=== PATIENT | male | born 1955 | race Caucasian/White ===

== ENCOUNTER 2019-04-01 14:23 | Inpatient (IN) | payer OTHER ==
[2019-04-01] VITALS (9 sets, daily range): BP systolic 153–200; BP diastolic 90–162
[~2019-04-01] VITALS: Ht 170.2 cm; Wt 80.3 kg
[~2019-04-01 14:23] MED LIST: ALEVE220 MG PO; APRESOLINE25 MG PO; CIPRO750 MG PO; CLONIDINE0.1 MG PO; Cipro Hc 0.2%-110 ML OT; DIOVAN320 MG PO; DUONEB 3ML 3 MG/3 ML INH; HYDRALAZINE HC100 MG PO; K-Dur 20MEQ20 MEQ PO; KEPPRA750 MG PO; LABETALOL200 MG PO; LASIX80 MG PO; LIORESAL10 MG PO; LIORESAL20 MG PO; MIRALAX17 GM/PACK PO; NORVASC10 MG PO; NOVOLIN R100 U/ML SC; PROZAC10 MG PO; PROZAC40 MG PO; Rocaltrol0.25 MCG PO; Senokot1 TAB PO; XANAX0.25 MG PO
[2019-04-01 15:32] LABS: BASO # 0.2 10*3/uL (0.0-0.1); BASO % 0.9 % (0.0-1.0); EOS # 0.4 10*3/uL (0.0-0.4); EOS % 2.1 % (1.0-4.0); HEMATOCRIT 47.5 % (42.0-52.0); HEMOGLOBIN 15.8 g/dl (14.0-18.0); LYMPH # 2.3 10*3/uL (1.3-4.4); LYMPH % 13.2 % (27.0-41.0); MEAN CELL VOLUME 87.3 fl (80.0-94.0); MEAN CORPUSCULAR HGB CONC 33.3 g/dl (33.0-37.0); MONO # 1.4 10*3/uL (0.1-1.0); NEUT # 12.9 10*3/uL (2.3-7.9); NEUT % 75.1 % (47.0-73.0); PLATELET COUNT AUTOMATED 371 10*3/uL (130-400); RED BLOOD COUNT 5.44 10*6/uL (4.50-5.90); RED CELL DISTRI WIDTH 14.6 % (0-14.5); WHITE BLOOD COUNT 17.2 10*3/uL (4.8-10.8)
[2019-04-01 15:42] LABS: ACT PARTIAL THROMBO TIME 28.7 SECONDS (20.0-32.1); INTERNATIONAL NORM RATIO 0.9 (2.0-3.5)
[2019-04-01 15:49] LABS: ALBUMIN 3.2 gm/dl (3.1-4.5); CREATININE 2.23 mg/dL (0.70-1.30); POTASSIUM 3.7 mmol/L (3.5-5.1); TOTAL PROTEIN 8.3 gm/dL (6.4-8.2)
[2019-04-01 15:53] LABS: TROPONIN I 0.709 ng/ml (<0.045)
[2019-04-01 17:07] LABS: CLARITY SL CLOUDY (CLEAR); COLOR YELLOW (YELLOW)
[2019-04-01 17:08] LABS: BILIRUBIN NEGATIVE (NEGATIVE); BLOOD NEGATIVE (NEGATIVE); GLUCOSE NEGATIVE (NEGATIVE); KETONE NEGATIVE (NEGATIVE); LEUKO ESTERASE 1+ (NEGATIVE); NITRITE NEGATIVE (NEGATIVE); SPECIFIC GRAVITY 1.005 (1.005-1.030); UROBILINOGEN 0.2 E.U./dl (0.2-1.0)
[2019-04-01 17:15] LABS: BACTERIA 1+; CALCIUM OXALATE CRYSTALS 1+; MUCOUS TRACE; WBC 21-30 wbc/hpf (0-5)
--- NOTE | 2019-04-01 19:21 | NUR ---
HYDRALAZINE HELP AT THIS TIME D/T BP.
--- NOTE | 2019-04-01 21:30 | NUR ---
A 64, admitted to 4E, under the services of NADINE Nielsen MD with a diagnosis of UTI/MASS OF COLON/SEPSIS. Chief complaint is WEAKNESS. Patient arrived via stretcher from ER. Monitor applied. Initial assessment completed. Vital signs taken and recorded. NADINE NIELSEN MD notified of admission to the unit. Orders received. See assessment for past medical history, medications and allergies. Patient and/or family oriented to unit. visitation policy reviewed. Clothing/patient valuable form completed. MILO ARGUETA
[2019-04-01] MEDS ORDERED: NEURONTIN300 MG PO (22:20)
[2019-04-01] MEDS ORDERED: AMOXICILLIN500 M3 PO (22:22)
--- NOTE | 2019-04-01 22:41 | NUR ---
DR. LEON CONTACTED AT THIS TIME IN REGARDS TO CONSULT. CALL WITH CBC RESULTS IN AM.
[2019-04-02] VITALS: BP 173/95
--- NOTE | 2019-04-02 05:50 | NUR ---
ZANENELLRICKEY Onur [id number] Please refer to the physician's history and physical for past medical history, comorbid conditions, and allergies. Diagnosis: UTI MASS OF COLON SEPSIS Jay Score: 7,VERY HIGH RISK WOUND DESCRIPTIONS: Wound Number: 1 Location of the wound: lower back and entire buttocks Type of wound: deep tissue pressure injury Thickness: Partial Size: 38.0cm x 33.0cm x 0.1cm Tunneling: none Undermining: none Sinus Tract: none Presence of Exudate: none Amount: None Color: dark red, purple Odor: None Periwound Skin Appearance: Normal Wound edges: approximated Pain (associated with wound): none at time of assessment How does patient state this happened? pt unsure how this happened Wound Number: 2 Location of the wound: left great toe Type of wound: deep tissue pressure injury Size: 0.7cm x 0.8cm x <0.1cm Tunneling: none Undermining: none Sinus Tract: none Presence of Exudate: none Amount: None Color: Purple, dark red Odor: None Periwound Skin Appearance: Normal Wound edges: closed Pain (associated with wound): none at time of assessment How does patient state this happened? pt unsure how this happened Wound Number: 3 Location of the wound: left 2nd toe Type of wound: deep tissue pressure injury Size: 0.4cm x 0.5cm x <0.1cm Tunneling: none Undermining: none Sinus Tract: none Presence of Exudate: none Amount: None Color: dark red, purple Odor: None Periwound Skin Appearance: Normal Wound edges: approximated Pain (associated with wound): none at time of assessment How does patient state this happened? pt unsure how this happened Wound Number: 4 Location of the wound: right thumb Thickness: Partial Size: 0.6cm x 0.6cm x <0.1cm Tunneling: none Undermining: none Sinus Tract: none Presence of Exudate: none Amount: None Color: dark red Odor: None Periwound Skin Appearance: Normal Wound edges: intact blood filled blister Pain (associated with wound): none at time of assessment How does patient state this happened? pt stated that he scratched himself Surface the patient is resting on: Isoflex SKIN PREVENTION RECOMMENDATION: 1. Pressure redistribution support surface as appropriate 2. Elevate heels 3. Remove boots/TEDS every shift and reapply 4. Head of bed 30 degrees as tolerated 5. Assess nutrition and hydration 6. Manage moisture 7. Avoid the use of containment devices while in bed 8. Use absorptive products on surfaces limit layers of linens on bed 9. Turn and reposition every 1-2 hours in bed and every 1 hour in chair as tolerated 10. Weight shifts every 15 minutes while up in chair 11. Offloading with pillows or device to keep heels elevated off bed 12. Monitor skin at least every shift 13. Inspect under medical devices twice a day WOUND TREATMENT RECOMMENDATIONS: Partial thickness guidelines: Cleanse right thumb with nss and apply sureprep and cover with bandaid daily and prn for soiling. DTI guidelines: Apply sureprep to left great toe and left 2nd toe then cover with bandaid daily and prn for soiling. Consult podiatry for toenail care. Cleanse bilateral lower extremities with soap and water and apply lac hydrin bid. Cleanse entire back and buttocks with soap and water and apply calazime every shift and prn for soiling. Wheelchair cushion when oob. Heel raiser pro boots to bilateral feet while in bed.
[2019-04-02 06:46] LABS: BASO # 0.1 10*3/uL (0.0-0.1); BASO % 0.9 % (0.0-1.0); EOS # 0.4 10*3/uL (0.0-0.4); EOS % 2.3 % (1.0-4.0); HEMATOCRIT 44.7 % (42.0-52.0); HEMOGLOBIN 15.1 g/dl (14.0-18.0); LYMPH # 2.3 10*3/uL (1.3-4.4); LYMPH % 14.3 % (27.0-41.0); MEAN CELL VOLUME 85.5 fl (80.0-94.0); MEAN CORPUSCULAR HGB 28.9 pg (27.0-31.0); MEAN CORPUSCULAR HGB CONC 33.8 g/dl (33.0-37.0); MEAN PLATELET VOLUME 9.6 fl (9.6-12.3); MONO # 1.2 10*3/uL (0.1-1.0); MONO % 7.6 % (3.0-9.0); NEUT # 12.1 10*3/uL (2.3-7.9); NEUT % 74.3 % (47.0-73.0); PLATELET COUNT AUTOMATED 363 10*3/uL (130-400); RED BLOOD COUNT 5.23 10*6/uL (4.50-5.90); RED CELL DISTRI WIDTH 14.3 % (0-14.5); WHITE BLOOD COUNT 16.2 10*3/uL (4.8-10.8)
--- NOTE | 2019-04-02 06:55 | NUR ---
PODIATRY CONSULT COMPLETE WITH DR. HAWKINS.
[2019-04-02 08:00] VITALS: BP 168/92
--- NOTE | 2019-04-02 08:53 | NUR ---
DR LEON IN TO SEE PT, ORDERS FOR EGD AND COLONOSCOPY. PT THEN REFUSES, RATIONALE EXPLIANED TO PT BY THIS RN FOR EGD AND COLO. PT CONTINUES TO REFUSE. DR LEON AND DR VERAS MADE AWARE.
--- NOTE | 2019-04-02 09:22 | NUR ---
PHYSICAL THERAPY Screen received pt from home w hx of CVA admitted with weakens pt could benefit from PT eval if he has had decline in functional status. Pascale Mc PT
--- NOTE | 2019-04-02 09:25 | NUR ---
Nursing screen received and chart reviewed. Patient has a history of CVA with left sided weakness. If patient has a decline in ADLs, functional transfers, and mobility, please send OT orders. Thank you. Pippa dawn, OTR/L
--- NOTE | 2019-04-02 10:27 | NUR ---
SPEECH PATHOLOGY Nursing screen completed. Patient has a history of CVA but does not appear to present with acute communication or swallowing difficulties at this time. Speech services are not indicated however this dept. will remain available should future needs arise. SHARON MCNEILL MSCCC-WATERWORKS CHIEF ENGINEER
[2019-04-02 12:00] VITALS: BP 145/96
--- NOTE | 2019-04-02 13:38 | NUR ---
Roustabout Pusher in to talk to patient. Patient states lives at home with . There are no steps in the home. Physician: frida hua Pharmacy: [facility] [place] health services: none Patient's level of ADLs: MAX ASSIST Patient has working utilities: all working DME: wheelchair Follow-up physician's appointment after d/c: family prefers to make patient's appointment when discharge Does patient want to access PORTAL?: no Discharge plan discussed with patient's daughter, she states patient has had a stroke and her mom and family take care of him at home, discussed if they would need VNA and educated on the services they provide, the daughter declined any services at this time, she stated if there was anything they needed at home her mom would contact case management. BRITTON BAIN
[2019-04-02 14:00] VITALS: BP 145/96
--- NOTE | 2019-04-02 14:30 | NUR ---
NOTIFIED DR LEON RE: PT AGREES TO HAVE EGD/COLO. HE STATES HE WILL SEE THE PT LATER TODAY AGAIN.
[2019-04-02 16:00] VITALS: BP 142/92
--- NOTE | 2019-04-02 18:00 | NUR ---
IN AND UPDATED THAT PT WILL HAVE EGD/COLO ON SUNDAY. SHE STATES UNDERSTANDING.
[2019-04-02 20:00] VITALS: BP 144/97
--- NOTE | 2019-04-02 21:23 | NUR ---
NOTIFIED DR. MACDONALD PATIENT IS HAVING MULTIPLE PVCS, IN AND OUT OF TRIGEMINY. TOLD TO CONSULT [facility]
--- NOTE | 2019-04-02 21:55 | NUR ---
NOTIFIFED ANSWERING SERVICE OF NEW CONSULT. WAITING ON A CALL BACK.
--- NOTE | 2019-04-02 22:04 | NUR ---
DR. MONZON CALLED BACK. NO NEW ORDERS RECEIVED STATED HE WOULD SEE PATIENT IN THE MORNING. WILL CONTINUE TO MONITOR.
[2019-04-03] VITALS: BP 135/96
--- NOTE | 2019-04-03 04:18 | NUR ---
Recommend follow up for wound care in outpatient setting patient refused at this time.
[2019-04-03 08:00] VITALS: BP 150/100
--- NOTE | 2019-04-03 08:30 | NUR ---
Dr. Mesa notified of elevated bp of 150/100.
--- NOTE | 2019-04-03 09:00 | NUR ---
Fitter Mechanic in to see patient. No new needs or request at this time. No family at bedside. He is scheduled for an EGD/colo tomorrow.
[2019-04-03 12:00] VITALS: BP 114/83
--- NOTE | 2019-04-03 12:42 | NUR ---
Report called to [facility] spoke with Cesar.
--- NOTE | 2019-04-03 14:00 | NUR ---
Encouraged pt to drink prep for colonoscopy.
[2019-04-03 16:00] VITALS: BP 116/88
[2019-04-03 20:00] VITALS: BP 147/84
[2019-04-04] VITALS (8 sets, daily range): BP systolic 110–183; BP diastolic 70–102
--- NOTE | 2019-04-04 04:00 | NUR ---
PATIENT ASLEEP, NO SIGNS OF DISTRESS. RESPIRATIONS EASY, NON LABORED. PATIENT HAS BEEN INCONTIENT MULTIPLE TIMES FOR LOOSE STOOLS. BRIEF ON. FLUIDS RUNNING AT 60ML/HR. BED IN LOWEST POSITION,CALL LIGHT WITHIN REACH. BED ALARM ON. WILL CONTINUE TO MONITOR.
--- NOTE | 2019-04-04 06:49 | NUR ---
PATIENT GIVEN FLEETS ENEMA. LIQUID YELLOW STOOL PRODUCED. PATIENT TOLERATED WELL.
--- NOTE | 2019-04-04 08:28 | NUR ---
Received call from asking if patient could have a hospital bed at home. Notified Dr. Mesa.
[2019-04-04 09:02] LABS: HEMATOCRIT 42.8 % (42.0-52.0); HEMOGLOBIN 13.9 g/dl (14.0-18.0); MEAN CELL VOLUME 87.3 fl (80.0-94.0); MEAN CORPUSCULAR HGB 28.4 pg (27.0-31.0); MEAN CORPUSCULAR HGB CONC 32.5 g/dl (33.0-37.0); MEAN PLATELET VOLUME 9.5 fl (9.6-12.3); RED CELL DISTRI WIDTH 14.6 % (0-14.5); WHITE BLOOD COUNT 9.6 10*3/uL (4.8-10.8)
[2019-04-04 09:07] LABS: PLATELET COUNT AUTOMATED 242 10*3/uL (130-400)
[2019-04-04 09:19] LABS: CREATININE 1.93 mg/dL (0.70-1.30)
[2019-04-04 09:21] LABS: POTASSIUM 3.1 mmol/L (3.5-5.1)
[2019-04-04 10:03] LABS: ATYPICAL LYMPHS 2 % (0-0); PLATELET SUFFICIENCY NORMAL (NORMAL); TOTAL CELLS COUNTED 100 #CELLS
[2019-04-04 10:04] LABS: TOXIC GRANULATION SLIGHT; VACUOLATION OF NEUTROPHILS SLIGHT
--- NOTE | 2019-04-04 10:20 | NUR ---
Nutritional Support Services Note: Recommend pt to receive Ensure po TID with meals. Regular diet as ordered. Ht.5'7 Wt.177#. Dx of UTI, mass of colon and sepsis. Hx of CVA. Pt has been NPO prepping for colonoscopy today. Unable to evalute po intake. Ensure will also be appropriate at home. Pt has wounds noted. Will follow as needed. Jerri Feng Rdn Ld
--- NOTE | 2019-04-04 11:45 | NUR ---
Received prescription for hospital bed at home from Dr. Mesa. Awaiting clinical documentation to fax to [facility].
--- NOTE | 2019-04-04 12:00 | NUR ---
patient bp is elevated at this time. spoke with dr. woods from surgery. patient will receive hydralazine at this time. bp will be rechecked in 1 hour.
[2019-04-04 13:35] LABS: CHOLESTEROL 177 mg/dL (<200); HDL CHOLESTEROL 31 mg/dl (40-60); LDL CHOLESTEROL 108 mg/dL (9-159); TRIGLYCERIDES 188 mg/dl (<150); VLDL CHOLESTEROL 38 mg/dL (6-40)
--- NOTE | 2019-04-04 13:40 | NUR ---
PATIENT TAKEN DOWN FOR STRESS TEST VIA CART. PATIENT WILL BE TAKEN TO OR FOR EGD/COLO AFTER STRESS TEST IS COMPLETED.
--- NOTE | 2019-04-04 14:18 | NUR ---
INFORMED SIGNED CONSENT OBTAINED FOR LEXISCAN STRESS TEST WITH DR ESPINOSA. RESTING EKG NSR WITH A FIRST DEGREE BLOCK HR 99 BP 154/100. RHONCHI AND POX 97% PT COMPLETED ONE MINUTE OF LEXISCAN PROTOCOL WITH PT RECEIVING LEXISCAN 0.4MG IV OVER 10 SECONDS. PVC'S NOTED, NON DIAGNOSTIC ST CHANGES SEEN. PT C/O A HEADACHE WITH INJECTION. LAST RECOVERY HR OF 114 BP 150/84. PT IN STABLE CONDITION, AWAITING NUCLEAR IMAGES.
--- NOTE | 2019-04-04 17:33 | NUR ---
SPOKE WITH DR. ESPINOSA REGARDING TRESS TEST. RESULTS WERE ABNORMAL. PATIENT DOES HAVE SOME ISCHEMIA OBSERVED. PATIENT MAY NEED A HEART CATH DEPENDING ON OUTCOME OF GI FINDINGS FROM EGD/COLO. NO FURTHER ORDERS GIVEN AT THIS TIME.
--- NOTE | 2019-04-04 17:56 | NUR ---
REPORT RECEIVED FROM [facility] REGARDING EGD/COLO RESULTS. DR. LEON ORDERS RECEIVED. PATIENT WILL RECEIVE TWO DOSES OF DIFLUCAN THIS EVENING AND THEN CONTINUE ONE DOSE DAILY. CARAFATE SUSPENSION 2G WILL BE STARTED QID.
[2019-04-05] VITALS: BP 161/92
[2019-04-05 07:30] LABS: CREATININE 1.89 mg/dL (0.70-1.30)
[2019-04-05 07:34] LABS: BASO # 0.1 10*3/uL (0.0-0.1); BASO % 0.8 % (0.0-1.0); EOS # 0.2 10*3/uL (0.0-0.4); EOS % 1.6 % (1.0-4.0); HEMATOCRIT 39.4 % (42.0-52.0); HEMOGLOBIN 12.9 g/dl (14.0-18.0); LYMPH # 1.6 10*3/uL (1.3-4.4); LYMPH % 13.3 % (27.0-41.0); MEAN CELL VOLUME 87.9 fl (80.0-94.0); MEAN CORPUSCULAR HGB 28.8 pg (27.0-31.0); MEAN CORPUSCULAR HGB CONC 32.7 g/dl (33.0-37.0); MEAN PLATELET VOLUME 9.2 fl (9.6-12.3); MONO # 0.7 10*3/uL (0.1-1.0); MONO % 5.7 % (3.0-9.0); NEUT # 9.1 10*3/uL (2.3-7.9); NEUT % 78.1 % (47.0-73.0); RED BLOOD COUNT 4.48 10*6/uL (4.50-5.90); RED CELL DISTRI WIDTH 14.6 % (0-14.5); WHITE BLOOD COUNT 11.6 10*3/uL (4.8-10.8)
[2019-04-05 07:50] LABS: PLATELET COUNT AUTOMATED 344 10*3/uL (130-400)
[2019-04-05 08:00] VITALS: BP 158/84
[2019-04-05 12:00] VITALS: BP 163/98
[2019-04-05 16:00] VITALS: BP 134/85
--- NOTE | 2019-04-05 16:01 | NUR ---
DR. TRAORE AWARE OF CONSULT.
[2019-04-05 20:00] VITALS: BP 137/81
--- NOTE | 2019-04-05 22:01 | NUR ---
PM MEDS TAKEN WITH EASE, PRN TYLENOL GIVEN PER PT REQUEST. CALL LIGHT IN REACH.
[2019-04-06] VITALS: BP 143/90
[2019-04-06 08:00] VITALS: BP 140/85
[2019-04-06 12:00] VITALS: BP 143/88
[2019-04-06 16:00] VITALS: BP 120/69
[2019-04-06 20:00] VITALS: BP 136/82
[2019-04-07] VITALS: BP 130/77
--- NOTE | 2019-04-07 06:33 | NUR ---
DR TRAORE WOULD LIKE DR VERAS TO CALL HIM WHEN SHE ARRIVES; PER PT'S FAMILY REQUEST.
--- NOTE | 2019-04-07 07:00 | NUR ---
REPORT RECEIVED. IV FLUIDS INFUSING WITHOUT DIFFICULTY. PT SLEEPING. NO DISTRESS NOTED. CALL LIGHT IN REACH.
[2019-04-07 08:00] VITALS: BP 137/74
--- NOTE | 2019-04-07 08:00 | NUR ---
Discussed discharge planning with Dr. Mesa. She states Dr. Frazier is working on getting the patient transferred. She thinks possibly [facility].
[2019-04-07 08:01] LABS: CREATININE 1.7 mg/dL (0.70-1.30); POTASSIUM 2.9 mmol/L (3.5-5.1)
[2019-04-07] MEDS ORDERED: FLUCONAZOLE100 MG PO (08:17)
[2019-04-07] MEDS ORDERED: METOPROLOL SUCC25 M2 PO (08:17)
[2019-04-07] MEDS ORDERED: ISORDIL10 M1 PO (08:17)
[2019-04-07] MEDS ORDERED: Ipratropium Brom3 ML NEB (08:17)
--- NOTE | 2019-04-07 08:23 | NUR ---
DR. VERAS NOTIFIED OF 50'S 60'S HR. ORDERED TO D/C COREG AND GIVE TOPROL. ALSO ORDERED KRUN AND KDUR. NO OTHER ORDERS AT THIS TIME.
--- NOTE | 2019-04-07 08:30 | NUR ---
DR. VERAS IN TO SEE PT
--- NOTE | 2019-04-07 10:00 | NUR ---
NO COMPLAINTS. PT LYING IN BED, CALL LIGHT IN REACH
[2019-04-07 12:00] VITALS: BP 135/78
--- NOTE | 2019-04-07 12:00 | NUR ---
DAUGHTER AT BEDSIDE
--- NOTE | 2019-04-07 13:37 | NUR ---
CALLED [facility] AND SPOKE WITH JOSE Zhang AUTH NUMBER FOR TRANSFER IS [id number]. NUMBER TO SEND CLINICALS TO IS [phone]. CALLED [facility] FOR [facility] AND PROVIDED THEM WITH AUTH NUMBER AND NUMBER TO FAX CLINICALS TO.
[2019-04-07 16:00] VITALS: BP 144/83
[2019-04-07 20:00] VITALS: BP 133/83
[2019-04-08] VITALS: BP 154/84
--- NOTE | 2019-04-08 | NUR ---
PT RESTING IN BED WITH EYES CLOSED, AWAKENS WITH EASE. RESP NONLABORED. NO ACUTE DISTRESS NOTED. NO COMPLAINTS VOICED. IV PATENT AND IVF'S INFUSING ORDERED WITHOUT DIFFICULTY. NO S/S OF HYPO/HYPERGLYCEMIA NOTED.
[2019-04-08 08:00] VITALS: BP 142/70
[2019-04-08 08:25] LABS: CREATININE 1.63 mg/dL (0.70-1.30); POTASSIUM 3.3 mmol/L (3.5-5.1)
--- NOTE | 2019-04-08 09:00 | NUR ---
Awaiting on [facility] bed for transfer.
[2019-04-08 12:00] VITALS: BP 148/82
--- NOTE | 2019-04-08 14:42 | NUR ---
Spoke to Michael at [facility], patient is still waiting on a bed.
[2019-04-08 16:00] VITALS: BP 124/79
[2019-04-08 20:00] VITALS: BP 120/79
--- NOTE | 2019-04-08 23:30 | NUR ---
MEDICATED WITH HYCODAN PER PRN ORDER FOR C/O COUGH.
[2019-04-09] VITALS: BP 126/73
--- NOTE | 2019-04-09 03:59 | NUR ---
Upon discharge recommend patient to follow up for wound care in outpatient setting continue current wound care orders at discharging facility.
[2019-04-09 06:01] LABS: CREATININE 1.93 mg/dL (0.70-1.30); POTASSIUM 3.5 mmol/L (3.5-5.1)
--- NOTE | 2019-04-09 06:16 | NUR ---
RICKEY KENNEDY [id number] Please refer to the physician's history and physical for past medical history, comorbid conditions, and allergies. Diagnosis: UTI MASS OF COLON SEPSIS Jay Score: 14,MODERATE RISK WOUND DESCRIPTIONS: Wound Number: 1 Location of the wound: lower back and entire buttocks red and blanchable at time of assessment. No open areas noted at time of assessment. Wound Number: 2 Location of the wound: left great toe Type of wound: deep tissue pressure injury Size: 0.7cm x 0.8cm x <0.1cm Tunneling: none Undermining: none Sinus Tract: none Presence of Exudate: none Amount: None Color: Purple, dark red Odor: None Periwound Skin Appearance: Normal Wound edges: closed Pain (associated with wound): none at time of assessment How does patient state this happened? pt unsure how this happened Wound Number: 3 Location of the wound: left 2nd toe Type of wound: deep tissue pressure injury Size: 0.2cm x 0.4cm x <0.1cm Tunneling: none Undermining: none Sinus Tract: none Presence of Exudate: none Amount: None Color: Red Odor: None Periwound Skin Appearance: Normal Wound edges: approximated Pain (associated with wound): none at time of assessment How does patient state this happened? pt unsure how this happened Wound Number: 4 Location of the wound: right thumb Thickness: Partial Size: 0.5cm x 0.5cm x <0.1cm Tunneling: none Undermining: none Sinus Tract: none Presence of Exudate: none Amount: None Color: dark red Odor: None Periwound Skin Appearance: Normal Wound edges: intact blood filled blister Pain (associated with wound): none at time of assessment How does patient state this happened? pt stated that he scratched himself Surface the patient is resting on: Isoflex SKIN PREVENTION RECOMMENDATION: 1. Pressure redistribution support surface as appropriate 2. Elevate heels 3. Remove boots/TEDS every shift and reapply 4. Head of bed 30 degrees as tolerated 5. Assess nutrition and hydration 6. Manage moisture 7. Avoid the use of containment devices while in bed 8. Use absorptive products on surfaces limit layers of linens on bed 9. Turn and reposition every 1-2 hours in bed and every 1 hour in chair as tolerated 10. Weight shifts every 15 minutes while up in chair 11. Offloading with pillows or device to keep heels elevated off bed 12. Monitor skin at least every shift 13. Inspect under medical devices twice a day WOUND TREATMENT RECOMMENDATIONS: Continue Partial thickness guidelines: Cleanse right thumb with nss and apply sureprep and cover with bandaid daily and prn for soiling. Continue DTI guidelines: Apply sureprep to left great toe and left 2nd toe then cover with bandaid daily and prn for soiling. Podiatry is already on consult. Continue Cleanse bilateral lower extremities with soap and water and apply lac hydrin bid. Continue Cleanse entire back and buttocks with soap and water and apply calazime every shift and prn for soiling. Continue Wheelchair cushion when oob. Continue Heel raiser pro boots to bilateral feet while in bed.
[2019-04-09 08:00] VITALS: BP 128/68
--- NOTE | 2019-04-09 08:15 | NUR ---
PATIENT RESTING IN BED WATCHING TV. PLEASANT AND NO COMPLAINTS AT THIS TIME. LUIZ WU SPCC
--- NOTE | 2019-04-09 10:35 | NUR ---
PATIENT RESTING COMFORTABLY. NO COMPLAINTS AT THIS TIME. WILL CONTINUE TO MONITOR. LUIZ WADE
[2019-04-09 12:00] VITALS: BP 134/69
--- NOTE | 2019-04-09 12:48 | NUR ---
PATIENT IS RESTING COMFORTABLY WITH DAUGHTER AT BEDSIDE. NO COMPLAINTS AT THIS TIME. LUIZ WU BETITO
--- NOTE | 2019-04-09 13:36 | NUR ---
PATIENT IS RESTING IN BED COMFORTABLY. VERY PLEASANT. NO COMPLAINTS AT THIS TIME. LUIZ WU [facility]
--- NOTE | 2019-04-09 13:44 | NUR ---
NURSE TO NURSE CALLED TO JESSICA
--- NOTE | 2019-04-09 14:05 | NUR ---
PT RESUFED WOUND CARE PICTURES AT THIS TIME, PER PT THEY WERE ALREADY LOOKED AT TODAY
--- NOTE | 2019-04-09 14:50 | NUR ---
Discharge instructions reviewed with patient/family. Patient receptive and verbalizes understanding. Follow-up care arranged. Written instructions given to patient/family. BLAINE HILL
== END 2019-04-09 14:50 | disposition short-term general hospital (02) | DRG 374 ==
LOC: ED 14:23 → 4E 19:48 → EDHOLD 19:48 → 4E 20:42
PROVIDERS: Internal Medicine; Internal Medicine Cardiovascular Disease; Nurse Practitioner Family; ADMIT Internal Medicine
PROC: 0HBRXZZ Excision of Toe Nail, External Approach (ICD-10-PCS; principal; 2019-04-02)
PROC: 4A02XM4 Measurement of Cardiac Total Activity, External Approach (ICD-10-PCS; 2019-04-04)
PROC: 0DB78ZX Excision of Stomach, Pylorus, Via Natural or Artificial Opening Endoscopic, Diagnostic (ICD-10-PCS; 2019-04-04)
PROC: 3E073KZ Introduction of Other Diagnostic Substance into Coronary Artery, Percutaneous Approach (ICD-10-PCS; 2019-04-04)
PROC: 0DD58ZX Extraction of Esophagus, Via Natural or Artificial Opening Endoscopic, Diagnostic (ICD-10-PCS; 2019-04-04)
PROC: 0DBN8ZX Excision of Sigmoid Colon, Via Natural or Artificial Opening Endoscopic, Diagnostic (ICD-10-PCS; 2019-04-04)
DX: C18.9 Malignant neoplasm of colon, unspecified (principal); N17.0 Acute kidney failure with tubular necrosis; E87.2 Acidosis; N18.4 Chronic kidney disease, stage 4 (severe); I16.9 Hypertensive crisis, unspecified; I69.354 Hemiplegia and hemiparesis following cerebral infarction affecting left non-dominant side; I13.0 Hypertensive heart and chronic kidney disease with heart failure and stage 1 through stage 4 chronic kidney disease, or unspecified chronic kidney disease; N13.6 Pyonephrosis; B37.81 Candidal esophagitis; K59.00 Constipation, unspecified; E87.6 Hypokalemia; K29.70 Gastritis, unspecified, without bleeding; K29.80 Duodenitis without bleeding; K80.80 Other cholelithiasis without obstruction; K25.9 Gastric ulcer, unspecified as acute or chronic, without hemorrhage or perforation; R59.0 Localized enlarged lymph nodes; K26.9 Duodenal ulcer, unspecified as acute or chronic, without hemorrhage or perforation; D64.9 Anemia, unspecified; R62.7 Adult failure to thrive; I50.9 Heart failure, unspecified; M24.575 Contracture, left foot; M24.572 Contracture, left ankle; K44.9 Diaphragmatic hernia without obstruction or gangrene; K22.8 Other specified diseases of esophagus; F41.9 Anxiety disorder, unspecified; B35.1 Tinea unguium; I49.3 Ventricular premature depolarization; S90.812A Abrasion, left foot, initial encounter; X58.XXXA Exposure to other specified factors, initial encounter; Y93.89 Activity, other specified; Y92.89 Other specified places as the place of occurrence of the external cause; Y99.8 Other external cause status; Z82.49 Family history of ischemic heart disease and other diseases of the circulatory system; Z99.3 Dependence on wheelchair; Z82.3 Family history of stroke; Z79.899 Other long term (current) drug therapy; Z68.27 Body mass index [BMI] 27.0-27.9, adult

== ENCOUNTER 2019-05-26 12:41 | Inpatient (IN) | payer OTHER ==
[~2019-05-26] VITALS: Ht 172.7 cm; Wt 82.0 kg
[~2019-05-26 12:41] MED LIST changes: +AMOXICILLIN500 M3 PO; +FLUCONAZOLE100 MG PO; +ISORDIL10 M1 PO; +Ipratropium Brom3 ML NEB; +METOPROLOL SUCC25 M2 PO; +NEURONTIN300 MG PO
[2019-05-26 12:42] VITALS: BP 119/70
[2019-05-26 13:35] LABS: BASO # 0.1 10*3/uL (0.0-0.1); BASO % 0.9 % (0.0-1.0); EOS # 1.2 10*3/uL (0.0-0.4); HEMATOCRIT 32.8 % (42.0-52.0); HEMOGLOBIN 9.8 g/dl (14.0-18.0); LYMPH # 1.7 10*3/uL (1.3-4.4); LYMPH % 11.4 % (27.0-41.0); MEAN CELL VOLUME 86.5 fl (80.0-94.0); MEAN CORPUSCULAR HGB 25.9 pg (27.0-31.0); MEAN CORPUSCULAR HGB CONC 29.9 g/dl (33.0-37.0); MEAN PLATELET VOLUME 9.2 fl (9.6-12.3); MONO # 0.6 10*3/uL (0.1-1.0); MONO % 3.8 % (3.0-9.0); NEUT % 75.2 % (47.0-73.0); PLATELET COUNT AUTOMATED 348 10*3/uL (130-400); RED BLOOD COUNT 3.79 10*6/uL (4.50-5.90); WHITE BLOOD COUNT 14.6 10*3/uL (4.8-10.8)
[2019-05-26 13:45] LABS: ACT PARTIAL THROMBO TIME 28.2 SECONDS (20.0-32.1)
[2019-05-26 14:03] LABS: ALBUMIN 2.6 gm/dl (3.1-4.5); CREATININE 1.75 mg/dL (0.70-1.30); POTASSIUM 3.4 mmol/L (3.5-5.1); TOTAL PROTEIN 6.9 gm/dL (6.4-8.2)
[2019-05-26 14:04] LABS: TROPONIN I 0.033 ng/ml (<0.045)
[2019-05-26 15:03] LABS: BILIRUBIN NEGATIVE (NEGATIVE); BLOOD 1+ (NEGATIVE); CLARITY SL CLOUDY (CLEAR); COLOR YELLOW (YELLOW); GLUCOSE NEGATIVE (NEGATIVE); KETONE NEGATIVE (NEGATIVE); LEUKO ESTERASE 1+ (NEGATIVE); NITRITE NEGATIVE (NEGATIVE); SPECIFIC GRAVITY 1.005 (1.005-1.030); UROBILINOGEN 0.2 E.U./dl (0.2-1.0)
[2019-05-26 15:14] LABS: BACTERIA 2+; URIC ACID CRYSTALS 1+
[2019-05-26 18:15] VITALS: BP 144/81
--- NOTE | 2019-05-26 18:15 | NUR ---
A 64, admitted to , under the services of Dr. TORRES CASTRO,LESLEY Mariee with a diagnosis of UTI, METABOLIC ENCEPHALOPATHY. Chief complaint is CHANGE IN MENTAL STATUS. Patient arrived via ambulance from ER. Monitor applied. Initial assessment completed. Vital signs taken and recorded. DR. TORRES CASTRO,LESLEY Mariee notified of admission to the unit. Orders received. See assessment for past medical history, medications and allergies. Patient and/or family oriented to unit. [facility] visitation policy reviewed. Clothing/patient valuable form completed. OPAL LYNN
--- NOTE | 2019-05-26 18:24 | NUR ---
DR. BAJWA'S ANSWERING SERVICE NOTIFIED OF CONSULT.
--- NOTE | 2019-05-26 19:25 | NUR ---
MADE AWARE OF WOUNDS. SEE ORDERS.
[2019-05-26 20:00] VITALS: BP 126/74
--- NOTE | 2019-05-26 20:00 | NUR ---
ASSUMED CARE FOR THIS PT AT THIS TIME. PT AWAKE IN BED. DINNER TRAY SITTING ON BEDSIDE TABLE. ASKED PT IF HE WAS HUNGRY, PT STATES "YES". DINNER FED TO PT. PT ATE 80%. RHONCHI/WHEEZING NOTED T/O W/MOIST ERP IMPLEMENTATION CONSULTANT COUGH. LOVE NOTED. WILL MONITOR. BLE ELEVATED. BED IN LOW POSITION W/WHEELS LOCKED AND ALARM ON. CALL LIGHT IN REACH.
--- NOTE | 2019-05-26 21:21 | NUR ---
PT ANXIOUS, PUTTING IRRIGATION SUPERVISOR LIGHT FREQUENTLY AND CALLING OUT FOR FOOD. HS SNACK GIVEN. PT REPOSITIONED. HS MEDS GIVEN. MEDICATED W/XANAX AT THIS TIME. CALL LIGHT IN REACH.
--- NOTE | 2019-05-26 22:35 | NUR ---
24 HR chart check completed.
[2019-05-27] VITALS: BP 110/57
--- NOTE | 2019-05-27 04:47 | NUR ---
RICKEY KENNEDY [id number] Please refer to the physician's history and physical for past medical history, comorbid conditions, and allergies. Diagnosis: UTI METABOLIC ENCEPHALOPATHY SEPSIS PNEUMONIT Jay Score: 11,HIGH RISK WOUND DESCRIPTIONS: Wound Number: 1 Patient's coccyx scar tissue noted at time of assessment. No open areas noted at time of assessment. No drainage noted at time of assessment. Wound Number: 2 Location of the wound: midline abdominal incision Type of wound: surgical Thickness: Full Size: 8.7cm x 0.6cm x 0.1cm Tunneling: none Undermining: none Sinus Tract: none Presence of Exudate: none Amount: None Color: Red, yellow Odor: None Periwound Skin Appearance: Normal Wound edges: approximated Pain (associated with wound): none at time of assessment How does patient state this happened? pt stated he had surgery but is unsure of when nurse caring for patient stated it was back in march Bilateral heels tender to touch at time of assessment. No open areas noted at time of assessment. Bilateral heels are red and blanchable at this time. Surface the patient is resting on: Position Pro SKIN PREVENTION RECOMMENDATION: 1. Pressure redistribution support surface as appropriate 2. Elevate heels 3. Remove boots/TEDS every shift and reapply 4. Head of bed 30 degrees as tolerated 5. Assess nutrition and hydration 6. Manage moisture 7. Avoid the use of containment devices while in bed 8. Use absorptive products on surfaces limit layers of linens on bed 9. Turn and reposition every 1-2 hours in bed and every 1 hour in chair as tolerated 10. Weight shifts every 15 minutes while up in chair 11. Offloading with pillows or device to keep heels elevated off bed 12. Monitor skin at least every shift 13. Inspect under medical devices twice a day WOUND TREATMENT RECOMMENDATIONS: Wheelchair cushion when oob Heel raiser pro boots to bilateral feet Cleanse coccyx with soap and water and apply hydraguard every shift and prn for soiling Cleanse abdominal incision with nss and apply sureprep around the wouund hydrogel to wound bed and cover with optifoam gentle daily and prn for soiling. D/C stage 1 guidelines and dressing change orders
[2019-05-27 06:16] LABS: BASO # 0.1 10*3/uL (0.0-0.1); BASO % 0.6 % (0.0-1.0); EOS # 1.1 10*3/uL (0.0-0.4); EOS % 9.3 % (1.0-4.0); HEMATOCRIT 29.7 % (42.0-52.0); LYMPH # 2.2 10*3/uL (1.3-4.4); LYMPH % 19.2 % (27.0-41.0); MEAN CELL VOLUME 86.3 fl (80.0-94.0); MEAN CORPUSCULAR HGB 26.2 pg (27.0-31.0); MEAN CORPUSCULAR HGB CONC 30.3 g/dl (33.0-37.0); MEAN PLATELET VOLUME 9.4 fl (9.6-12.3); MONO # 0.8 10*3/uL (0.1-1.0); MONO % 6.8 % (3.0-9.0); NEUT # 7.2 10*3/uL (2.3-7.9); NEUT % 63.7 % (47.0-73.0); PLATELET COUNT AUTOMATED 280 10*3/uL (130-400); RED BLOOD COUNT 3.44 10*6/uL (4.50-5.90); RED CELL DISTRI WIDTH 15.4 % (0-14.5); WHITE BLOOD COUNT 11.3 10*3/uL (4.8-10.8)
[2019-05-27 06:19] LABS: CREATININE 1.81 mg/dL (0.70-1.30)
--- NOTE | 2019-05-27 06:40 | NUR ---
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 HIS POTASSIUM ALSO DROPPED FROM 3.4 YESTERDAY TO 3.0 TODAY.
[2019-05-27 08:00] VITALS: BP 118/66
--- NOTE | 2019-05-27 09:04 | NUR ---
Cigarette Making Machine Catcher in to talk to patient. Patient states lives at home with his . There are no steps in the home. Physician: Dr. Kiana Mesa Pharmacy: [facility] Home health services: none Patient's level of ADLs: MAX ASSIST Patient has working utilities: yes DME: wheelchair, hospital bed Follow-up physician's appointment after d/c: he prefers to make his own follow up appointment after discharge Does patient want to access PORTAL?: no Discharge plan discussed with patient. He lives at home with his . He needs max assistance with his ADLs and gets around in a wheelchair. Family takes care of patient at home. Discussed home health care services and he denies any home needs at this time. When medically stable he will be discharged to home. He states his or daughter will provide transportation on discharge. JAN SHETH
--- NOTE | 2019-05-27 09:49 | NUR ---
PHYSICAL THERAPY Physical Therapy evaluation completed on 4E with full evaluation to follow. Moderate complexity PT evaluation per chart review and evaluation, [id number]. Recommend physical therapy per plan of care and Home with 24hr assist () upon discharge. Thank you for this referral. Estefania Hernandez,PT,DPT
[2019-05-27 12:00] VITALS: BP 127/62
--- NOTE | 2019-05-27 15:22 | NUR ---
IN PT ROOM AT THIS TIME, PT IS RESTING WATCHING TV. HE HAS NO COMPLAINTS AT THIS TIME, JUST STATES WHEN HIS DINNER IS HERE HE NEEDS HELP EATING. CALL LIGHT WITHIN REACH, WILL CONTINUE TO MONITOR
[2019-05-27 16:00] VITALS: BP 132/69
--- NOTE | 2019-05-27 19:00 | NUR ---
ASSUMED CARE FOR THIS PT AT THIS TIME. PT RESTING QUIETLY IN BED AT THIS TIME. BED IN LOW POSITION W/WHEELS LOCKED AND ALARM ON. CALL LIGHT IN REACH.
[2019-05-27 20:00] VITALS: BP 102/55
--- NOTE | 2019-05-27 20:33 | NUR ---
DR. VERAS NOTIFIED OF POTASSIUM LEVEL OF 3.0 THIS MORNING. T.O. RCVD FOR BMP IN AM AND KDUR 40 MEQ NOW AND EVERY 2 HRS X2 FOR TOTAL OF 120 MEQ
[2019-05-28] VITALS (7 sets, daily range): BP systolic 94–118; BP diastolic 52–65
--- NOTE | 2019-05-28 04:01 | NUR ---
24 HR chart check completed.
--- NOTE | 2019-05-28 05:39 | NUR ---
PATIENT BP 94/52, HYDRALAZINE HELD
[2019-05-28 06:16] LABS: BASO # 0.1 10*3/uL (0.0-0.1); BASO % 0.9 % (0.0-1.0); EOS # 0.9 10*3/uL (0.0-0.4); EOS % 8.9 % (1.0-4.0); HEMATOCRIT 29.2 % (42.0-52.0); HEMOGLOBIN 8.7 g/dl (14.0-18.0); LYMPH # 1.7 10*3/uL (1.3-4.4); MEAN CORPUSCULAR HGB 26.2 pg (27.0-31.0); MEAN CORPUSCULAR HGB CONC 29.8 g/dl (33.0-37.0); MEAN PLATELET VOLUME 9.7 fl (9.6-12.3); MONO # 0.7 10*3/uL (0.1-1.0); MONO % 6.6 % (3.0-9.0); NEUT % 66.9 % (47.0-73.0); PLATELET COUNT AUTOMATED 257 10*3/uL (130-400); RED BLOOD COUNT 3.32 10*6/uL (4.50-5.90); RED CELL DISTRI WIDTH 15.7 % (0-14.5); WHITE BLOOD COUNT 10.5 10*3/uL (4.8-10.8)
[2019-05-28 06:26] LABS: CREATININE 1.91 mg/dL (0.70-1.30); POTASSIUM 4.1 mmol/L (3.5-5.1)
--- NOTE | 2019-05-28 11:37 | NUR ---
PHYSICAL THERAPY Patient was approached for therapy session at 11:39 AM and the RN Theresa was in attending to patient. Will check back with patient after lunch. SHANE MANDEL JET INSPECTOR
--- NOTE | 2019-05-28 13:00 | NUR ---
PAGED REGARDING PNEUMONIA AND ANTIBIOTICS.
--- NOTE | 2019-05-28 13:04 | NUR ---
PHYSICAL THERAPY Patient presented to therapy in supine with head of bed elevated and heel protectors on bilateral feet. Patient gives informed consent for treatment. Patient was identified by name and on wristband. Patient performed supine<>sitting on EOB with MAX A X 1-2. Patient sat on EOB with MOD A X 1-MIN A X 1 to prevent retro-lean. Patient has pain in the L LE/FOOT. Patient has L UE flexion synergy. Patient does NOT have his AFO/brace for the L LE, so he cannot attempt standing. Patient performed R LE LAQs and marches x 20 reps each. Patient was able to sit for about 10 minutes before needing to lie back down due to fatigue. Patient transferred back to supine in bed with MAX A X 1. Patient had BM and RN SIGRID and a GROUNDSKEEPER PORTER came into the room to assist with cleaning up patient and changing clothing and bedding. This AUTOMOTIVE PARTS ADVISOR rolled patient for RN SIGRID and the GROUNDSKEEPER PORTER with MAX A X 2. Patient was left with RN SIGRID and GROUNDSKEEPER PORTER. Patient was 1:1 with this AUTOMOTIVE PARTS ADVISOR for 20 minutes total. SHANE MANDEL AUTOMOTIVE PARTS ADVISOR
[2019-05-29] VITALS: BP 114/69
--- NOTE | 2019-05-29 02:24 | NUR ---
24 HOUR CHART CHECK COMPLETE.
[2019-05-29 05:16] VITALS: BP 122/70
--- NOTE | 2019-05-29 06:12 | NUR ---
PT REQUESTING SOMETHING FOR KNEE PAIN. T.O. TAKEN FROM DR MACDONALD FOR 1000 MG TYLENOL TID PRN.
[2019-05-29 06:16] LABS: BASO % 0.2 % (0.0-1.0); HEMATOCRIT 28.4 % (42.0-52.0); HEMOGLOBIN 8.5 g/dl (14.0-18.0); LYMPH # 0.8 10*3/uL (1.3-4.4); LYMPH % 7.4 % (27.0-41.0); MEAN CELL VOLUME 86.6 fl (80.0-94.0); MEAN CORPUSCULAR HGB 25.9 pg (27.0-31.0); MEAN CORPUSCULAR HGB CONC 29.9 g/dl (33.0-37.0); MEAN PLATELET VOLUME 9.9 fl (9.6-12.3); MONO # 0.2 10*3/uL (0.1-1.0); MONO % 1.5 % (3.0-9.0); NEUT # 9.5 10*3/uL (2.3-7.9); NEUT % 89.9 % (47.0-73.0); PLATELET COUNT AUTOMATED 239 10*3/uL (130-400); RED BLOOD COUNT 3.28 10*6/uL (4.50-5.90); RED CELL DISTRI WIDTH 15.7 % (0-14.5); WHITE BLOOD COUNT 10.6 10*3/uL (4.8-10.8)
[2019-05-29 06:45] LABS: CREATININE 1.89 mg/dL (0.70-1.30); POTASSIUM 4.6 mmol/L (3.5-5.1)
--- NOTE | 2019-05-29 06:48 | NUR ---
TYLENOL ADMINISTERED FOR PT C/O LEFT KNEE PAIN.
[2019-05-29 08:00] VITALS: BP 110/70
--- NOTE | 2019-05-29 08:25 | NUR ---
Dr. Mesa in and examined pt.
--- NOTE | 2019-05-29 08:51 | NUR ---
DR. Frederick notified of consult.
--- NOTE | 2019-05-29 09:01 | NUR ---
Spoke with pt daughter Nani regarding possible for dc tomorrow.
--- NOTE | 2019-05-29 10:00 | NUR ---
Career Transition Specialist in to see patient. No new needs or request at this time. He denies any home needs. When medically stable he will be discharged to home.
--- NOTE | 2019-05-29 10:16 | NUR ---
Nutritional Support Services Note: Appetite is good for meals. He is eating 100% of all meals. Regular diet as ordered. Wounds noted. Will provide pt with a night snack No other Nutrition intervention needed at this time. Will follow as needed. Jerri Feng Rdn Ld
[2019-05-29 12:00] VITALS: BP 123/63
--- NOTE | 2019-05-29 12:59 | NUR ---
PHYSICAL THERAPY TREATMENT TIME: OUT 11:18 AM Patient presented to therapy in supine with head bed elevated and bed alarm activated. Patient gives informed consent for treatment. Patient was identified by name and on wristband. Patient has L sided hemiparesis. Patient performed supine to sitting on EOB with MAX A X 2. Patient sat on EOB with CGA. Patient has retro-lean and required MIN A X 1 in sitting to correct the retro-lean. Patient cervical spine is flexed forwards and very tight and spastic. Patient sat on EOB for 10 minutes total with CGA and performed seated bilateral LE ther ex 2 x 10 reps each in LA, marches and APs on R LE. Patient transferred back to supine in bed with MAX A X 2. Patient does not have AFO/BRACE for L LE, therefore standing was not attempted. Patient was left in supine in bed with head of elevated, call light within reach and bed alarm activated. Patient was 1:1 with this TONG HOOKER for 15 minutes total. SHANE MANDEL TONG HOOKER
[2019-05-29 16:00] VITALS: BP 114/65
[2019-05-29 20:00] VITALS: BP 121/60
--- NOTE | 2019-05-29 23:24 | NUR ---
24 HOUR CHART CHECK COMPLETE.
[2019-05-30] VITALS: BP 114/64
--- NOTE | 2019-05-30 04:48 | NUR ---
TYLENOL ADMINISTERED FOR PT C/O LEFT FOOT PAIN. WILL MONITOR.
[2019-05-30 05:30] VITALS: BP 118/70
[2019-05-30 08:00] VITALS: BP 110/74
[2019-05-30] MEDS ORDERED: DOXYCYCLINE100 M3 PO (08:39)
[2019-05-30] MEDS ORDERED: ZITHROMAX TRI-500 M1 PO (08:39)
[2019-05-30] MEDS ORDERED: PREDNISONE5 MG PO (08:39)
--- NOTE | 2019-05-30 10:53 | NUR ---
Medicated with xanax per prn order for anxiety. Pt is awaiting family to arrive for DC. 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
--- NOTE | 2019-05-30 11:12 | NUR ---
Pt declined photographs of wounds.
--- NOTE | 2019-05-30 12:01 | NUR ---
Brace to left leg and shoe applied. Assisted pt up with help of PT to wheelchair for dc to home. is out ER lot waiting for pt. DC in care of PAs via wheelchair with belongings.
[2019-05-31 19:02] LABS: ADENOVIRUS Negative (Negative); INFLUENZA A Negative (Negative); INFLUENZA B Negative (Negative); METAPNEUMOVIRUS Negative (Negative); PARAINFLUENZA 1 Negative (Negative); PARAINFLUENZA 2 Negative (Negative); PARAINFLUENZA 3 Negative (Negative); RHINOVIRUS Negative (Negative); RSV A Negative (Negative); RSV B Negative (Negative)
--- NOTE | 2019-06-02 15:51 | NUR ---
PHYSICAL THERAPY CO-SIGN I approve of the Physical Therapy notes written above. JAN HUERTA PT, DPT
== END 2019-05-30 12:01 | disposition home or self-care (01) | DRG 193 ==
LOC: ED 12:41 → EDHOLD 16:50 → 4E 16:50 → EDHOLD 17:18 → 4E 17:21
PROVIDERS: Emergency Medicine; Internal Medicine; ADMIT Internal Medicine
DX: J18.9 Pneumonia, unspecified organism (principal); G93.41 Metabolic encephalopathy; J44.1 Chronic obstructive pulmonary disease with (acute) exacerbation; C78.7 Secondary malignant neoplasm of liver and intrahepatic bile duct; I69.354 Hemiplegia and hemiparesis following cerebral infarction affecting left non-dominant side; N18.4 Chronic kidney disease, stage 4 (severe); J44.0 Chronic obstructive pulmonary disease with (acute) lower respiratory infection; J20.9 Acute bronchitis, unspecified; E87.6 Hypokalemia; B35.1 Tinea unguium; N20.0 Calculus of kidney; I25.10 Atherosclerotic heart disease of native coronary artery without angina pectoris; I12.9 Hypertensive chronic kidney disease with stage 1 through stage 4 chronic kidney disease, or unspecified chronic kidney disease; F41.1 Generalized anxiety disorder; K59.09 Other constipation; R62.7 Adult failure to thrive; Z82.3 Family history of stroke; Z82.49 Family history of ischemic heart disease and other diseases of the circulatory system

== ENCOUNTER 2019-06-17 18:51 | Inpatient (IN) | payer OTHER ==
[~2019-06-17] VITALS: Ht 180.3 cm; Wt 77.1 kg
[~2019-06-17 18:51] MED LIST changes: +DOXYCYCLINE100 M3 PO; +PREDNISONE5 MG PO; +ZITHROMAX TRI-500 M1 PO
[2019-06-17 18:54] VITALS: BP 135/88
[2019-06-17 19:55] LABS: BASO # 0.1 10*3/uL (0.0-0.1); BASO % 0.4 % (0.0-1.0); EOS # 0.7 10*3/uL (0.0-0.4); EOS % 4.5 % (1.0-4.0); HEMATOCRIT 33.8 % (42.0-52.0); LYMPH # 1.4 10*3/uL (1.3-4.4); LYMPH % 9.2 % (27.0-41.0); MEAN CELL VOLUME 79.5 fl (80.0-94.0); MEAN CORPUSCULAR HGB 23.8 pg (27.0-31.0); MEAN CORPUSCULAR HGB CONC 29.9 g/dl (33.0-37.0); MEAN PLATELET VOLUME 9.1 fl (9.6-12.3); MONO # 0.6 10*3/uL (0.1-1.0); MONO % 3.9 % (3.0-9.0); NEUT # 12.2 10*3/uL (2.3-7.9); NEUT % 81.2 % (47.0-73.0); PLATELET COUNT AUTOMATED 385 10*3/uL (130-400); RED BLOOD COUNT 4.25 10*6/uL (4.50-5.90); RED CELL DISTRI WIDTH 16.9 % (0-14.5); WHITE BLOOD COUNT 15.1 10*3/uL (4.8-10.8)
[2019-06-17 20:12] LABS: ALBUMIN 2.4 gm/dl (3.1-4.5); CREATININE 1.88 mg/dL (0.70-1.30); POTASSIUM 3.6 mmol/L (3.5-5.1); TOTAL PROTEIN 7.7 gm/dL (6.4-8.2)
[2019-06-17 20:19] LABS: TROPONIN I 0.134 ng/ml (<0.045)
[2019-06-17 22:53] LABS: BILIRUBIN NEGATIVE (NEGATIVE); CLARITY SL CLOUDY (CLEAR); COLOR YELLOW (YELLOW); GLUCOSE NEGATIVE (NEGATIVE); KETONE NEGATIVE (NEGATIVE)
[2019-06-17 22:54] LABS: BLOOD 1+ (NEGATIVE); LEUKO ESTERASE TRACE (NEGATIVE); NITRITE NEGATIVE (NEGATIVE); UROBILINOGEN 0.2 E.U./dl (0.2-1.0)
[2019-06-17 22:55] LABS: BACTERIA 1+; RBC 31-40 rbc/hpf (0-2); URIC ACID CRYSTALS 2+
[2019-06-18 00:40] VITALS: BP 153/96
[2019-06-18] MEDS ORDERED: FLUOXETINE HCL40 MG PO ×2 (01:17→01:46)
[2019-06-18] MEDS ORDERED: VOLTAREN100 GM T (01:19)
[2019-06-18] MEDS ORDERED: ATORVASTATIN CA40 M1 PO (01:20)
[2019-06-18] MEDS ORDERED: ISORDIL10 M1 PO (01:24)
[2019-06-18] MEDS ORDERED: PROTONIX40 MG PO (01:25)
[2019-06-18] MEDS ORDERED: HYDRALAZINE HC100 MG PO (01:47)
[2019-06-18 08:00] VITALS: BP 144/88
[2019-06-18 12:00] VITALS: BP 126/93
[2019-06-18 16:00] VITALS: BP 131/77
[2019-06-18 20:00] VITALS: BP 118/72
[2019-06-19] VITALS: BP 118/69
[2019-06-19 08:00] VITALS: BP 135/78
[2019-06-19 12:00] VITALS: BP 124/72
[2019-06-19 16:00] VITALS: BP 116/57
[2019-06-19 20:00] VITALS: BP 131/79
[2019-06-20] VITALS: BP 117/71
[2019-06-20 08:00] VITALS: BP 127/70
[2019-06-20 12:00] VITALS: BP 130/83
[2019-06-20 16:00] VITALS: BP 124/89
[2019-06-20 20:00] VITALS: BP 123/68
[2019-06-21] VITALS: BP 124/71
[2019-06-21] MEDS ORDERED: DICLOFENAC SOD100 G1 T (07:59)
[2019-06-21] MEDS ORDERED: CEFUROXIME AXE250 MG PO (08:01)
[2019-06-21] MEDS ORDERED: XANAX0.25 MG PO (08:01)
[2019-06-21 08:07] VITALS: BP 139/90
[2019-06-21 12:00] VITALS: BP 133/79
== END 2019-06-21 13:30 | disposition home or self-care (01) | DRG 71 ==
LOC: ED 18:51 → 4E 23:58
PROVIDERS: Emergency Medicine; ADMIT Internal Medicine
DX: G93.41 Metabolic encephalopathy (principal); I69.354 Hemiplegia and hemiparesis following cerebral infarction affecting left non-dominant side; C18.9 Malignant neoplasm of colon, unspecified; C78.7 Secondary malignant neoplasm of liver and intrahepatic bile duct; I13.0 Hypertensive heart and chronic kidney disease with heart failure and stage 1 through stage 4 chronic kidney disease, or unspecified chronic kidney disease; N18.3 Chronic kidney disease, stage 3 (moderate); K59.09 Other constipation; G40.409 Other generalized epilepsy and epileptic syndromes, not intractable, without status epilepticus; I25.10 Atherosclerotic heart disease of native coronary artery without angina pectoris; F41.1 Generalized anxiety disorder; R62.7 Adult failure to thrive; J45.40 Moderate persistent asthma, uncomplicated; I50.9 Heart failure, unspecified; Z87.440 Personal history of urinary (tract) infections; Z82.3 Family history of stroke; Z82.49 Family history of ischemic heart disease and other diseases of the circulatory system; Z68.23 Body mass index [BMI] 23.0-23.9, adult

== ENCOUNTER 2020-04-30 10:02 | Inpatient (IN) | payer OTHER ==
[~2020-04-30] VITALS: Ht 180.3 cm; Wt 98.7 kg
[~2020-04-30 10:02] MED LIST changes: +ATORVASTATIN CA40 M1 PO; +CEFUROXIME AXE250 MG PO; +DICLOFENAC SOD100 G1 T; +FLUOXETINE HCL40 MG PO; +PROTONIX40 MG PO; +VOLTAREN100 GM T
[2020-04-30 10:04] VITALS: BP 135/66
[2020-04-30 12:02] LABS: BASO # 0.1 10*3/uL (0.0-0.1); BASO % 0.6 % (0.0-1.0); EOS # 0.1 10*3/uL (0.0-0.4); HEMATOCRIT 32.8 % (42.0-52.0); LYMPH # 0.8 10*3/uL (1.3-4.4); LYMPH % 6.5 % (27.0-41.0); MEAN CELL VOLUME 72.9 fl (80.0-94.0); MEAN CORPUSCULAR HGB 21.8 pg (27.0-31.0); MEAN CORPUSCULAR HGB CONC 29.9 g/dl (33.0-37.0); MONO # 0.9 10*3/uL (0.1-1.0); MONO % 7.3 % (3.0-9.0); NEUT # 10.7 10*3/uL (2.3-7.9); PLATELET COUNT AUTOMATED 360 10*3/uL (130-400); RED CELL DISTRI WIDTH 18.7 % (0-14.5); WHITE BLOOD COUNT 12.7 10*3/uL (4.8-10.8)
[2020-04-30 12:21] LABS: CREATININE 6.95 mg/dL (0.70-1.30); POTASSIUM 4.6 mmol/L (3.5-5.1); TOTAL PROTEIN 8.5 gm/dL (6.4-8.2)
[2020-04-30 13:21] LABS: BILIRUBIN Negative (Negative); BLOOD 2+ (Negative); CLARITY Turbid (Clear); COLOR Yellow (Yellow); GLUCOSE Negative (Negative); KETONE Negative (Negative); LEUKO ESTERASE 3+ (Negative); NITRITE Negative (Negative); UROBILINOGEN 0.2 E.U./dl (0.0-1.0)
[2020-04-30 13:49] LABS: RBC TNTC rbc/hpf (0-2); WBC TNTC wbc/hpf (0-5)
[2020-04-30 13:51] LABS: BACTERIA 4+
[2020-04-30] MEDS ORDERED: FLOMAX0.4 MG PO (14:13)
[2020-04-30] MEDS ORDERED: MIRALAX119 GM PO (14:14)
[2020-04-30] MEDS ORDERED: CIPROFLOXACIN250 MG PO (14:14)
[2020-04-30] MEDS ORDERED: ISORDIL10 M1 PO (14:15)
[2020-04-30] MEDS ORDERED: HYDRALAZINE HC100 MG PO (14:16)
[2020-04-30] MEDS ORDERED: SENOKOT8.6 MG PO (14:16)
[2020-04-30 19:14] LABS: URINE CREATININE RANDOM 59.8 mg/dL
[2020-04-30 20:00] VITALS: BP 155/90
[2020-05-01] VITALS: BP 157/87
[2020-05-01 07:39] LABS: FERRITIN 88.4 ng/mL (22.0-322.0); VITAMIN D, 25-HYDROXY 39.3 ng/mL (30-100)
[2020-05-01 07:40] LABS: PTH INTACT 101.5 pg/mL (18.5-88.0)
[2020-05-01 08:00] VITALS: BP 155/88
[2020-05-01 09:10] LABS: ALBUMIN 2.8 gm/dl (3.1-4.5); CREATININE 7.32 mg/dL (0.70-1.30); POTASSIUM 4.9 mmol/L (3.5-5.1); TOTAL PROTEIN 6.8 gm/dL (6.4-8.2)
[2020-05-01 12:00] VITALS: BP 151/80
[2020-05-01 16:00] VITALS: BP 158/88
[2020-05-01 20:00] VITALS: BP 159/87
[2020-05-02 06:19] LABS: BASO # 0.1 10*3/uL (0.0-0.1); BASO % 0.7 % (0.0-1.0); EOS # 0.2 10*3/uL (0.0-0.4); EOS % 2.3 % (1.0-4.0); HEMATOCRIT 29.5 % (42.0-52.0); LYMPH # 1.3 10*3/uL (1.3-4.4); LYMPH % 12.3 % (27.0-41.0); MEAN CELL VOLUME 72.3 fl (80.0-94.0); MEAN CORPUSCULAR HGB 21.3 pg (27.0-31.0); MEAN CORPUSCULAR HGB CONC 29.5 g/dl (33.0-37.0); MEAN PLATELET VOLUME 9.2 fl (9.6-12.3); MONO # 0.8 10*3/uL (0.1-1.0); MONO % 7.7 % (3.0-9.0); NEUT # 7.8 10*3/uL (2.3-7.9); NEUT % 76.1 % (47.0-73.0); PLATELET COUNT AUTOMATED 362 10*3/uL (130-400); RED BLOOD COUNT 4.08 10*6/uL (4.50-5.90); RED CELL DISTRI WIDTH 18.9 % (0-14.5); WHITE BLOOD COUNT 10.3 10*3/uL (4.8-10.8)
[2020-05-02 06:32] LABS: ALBUMIN 2.4 gm/dl (3.1-4.5); CREATININE 6.96 mg/dL (0.70-1.30); POTASSIUM 4.2 mmol/L (3.5-5.1); TOTAL PROTEIN 6.9 gm/dL (6.4-8.2)
[2020-05-02 08:00] VITALS: BP 139/66
[2020-05-02 12:00] VITALS: BP 132/74
[2020-05-02 16:05] VITALS: BP 145/81
[2020-05-02 20:00] VITALS: BP 126/79
[2020-05-03] VITALS: BP 120/71
[2020-05-03 08:00] VITALS: BP 145/68
[2020-05-03 08:37] LABS: CREATININE 6.65 mg/dL (0.70-1.30)
[2020-05-03 12:00] VITALS: BP 137/89
[2020-05-03 15:56] VITALS: BP 155/77
[2020-05-03 20:00] VITALS: BP 123/84
[2020-05-04] VITALS: BP 120/78
[2020-05-04 06:08] LABS: CREATININE 5.83 mg/dL (0.70-1.30); POTASSIUM 4.4 mmol/L (3.5-5.1)
[2020-05-04 08:00] VITALS: BP 162/96
[2020-05-04] MEDS ORDERED: CALCIUM ACETAT667 MG PO (08:14)
[2020-05-04] MEDS ORDERED: GABAPENTIN100 M2 PO (08:17)
[2020-05-04 12:00] VITALS: BP 146/90
[2020-05-04 16:09] LABS: CREATININE,URINE 36.6 mg/dL (Not Estab.)
[2020-05-04 16:20] VITALS: BP 162/99
[2020-05-04 20:06] VITALS: BP 128/82; BP 173/89
[2020-05-05] VITALS: BP 138/80; BP 152/90
[2020-05-05 08:00] VITALS: BP 173/67
[2020-05-05 09:42] LABS: CREATININE 4.59 mg/dL (0.70-1.30)
[2020-05-05 09:46] LABS: POTASSIUM 3.2 mmol/L (3.5-5.1)
== END 2020-05-05 15:25 | disposition hospice, home (50) | DRG 682 ==
LOC: ED 10:02 → 4E 12:55 → EDHOLD 12:55 → 4E 13:12
PROVIDERS: Emergency Medicine; Internal Medicine Nephrology; ADMIT Internal Medicine; ATTEND Internal Medicine
DX: N17.0 Acute kidney failure with tubular necrosis (principal); G93.41 Metabolic encephalopathy; N39.0 Urinary tract infection, site not specified; E87.2 Acidosis; C18.9 Malignant neoplasm of colon, unspecified; C78.7 Secondary malignant neoplasm of liver and intrahepatic bile duct; I69.354 Hemiplegia and hemiparesis following cerebral infarction affecting left non-dominant side; E46 Unspecified protein-calorie malnutrition; E83.39 Other disorders of phosphorus metabolism; E87.6 Hypokalemia; D50.9 Iron deficiency anemia, unspecified; R62.7 Adult failure to thrive; I12.9 Hypertensive chronic kidney disease with stage 1 through stage 4 chronic kidney disease, or unspecified chronic kidney disease; Z51.5 Encounter for palliative care; N18.4 Chronic kidney disease, stage 4 (severe); I95.9 Hypotension, unspecified; I25.10 Atherosclerotic heart disease of native coronary artery without angina pectoris; N13.30 Unspecified hydronephrosis; G40.909 Epilepsy, unspecified, not intractable, without status epilepticus; N20.9 Urinary calculus, unspecified; K56.41 Fecal impaction; Z82.49 Family history of ischemic heart disease and other diseases of the circulatory system; Z82.3 Family history of stroke; Z79.899 Other long term (current) drug therapy